=== PATIENT | female | born 1995 | race Caucasian/White ===

== ENCOUNTER 2022-12-20 14:18 | Emergency (ER) | payer OTHER ==
[2022-12-20 14:33] VITALS: O2SAT 100
[2022-12-20] MEDS ORDERED: HYDROmorphone 1 MG/ML CARPUJECT IM STA (14:35)
--- NOTE | 2022-12-20 14:39 | ED Physician Documentation ---
History of Present Illness - Stated complaint Stated Complaint: BACK PX - Chief complaint Chief Complaint: Trauma Ch/Bk - Additonal information Additional information: 26-year-old female presents emergency department for evaluation of acute on chronic low back pain. Reports originally injuring her back in 2020. She has been seen by physical therapy multiple times. She is also been seen by primary care doctor. They have all recommended an MRI of the back but [facility] has not followed through with these recommendations. Patient states that she was bending over to lift a box when she felt a sharp pain in her low back that radiates to her right quadriceps and gluteus. She states that this feels similar to sciatica that she has been told she has in the past. She has no saddle anesthesia, loss of bowel or bladder function. No history of diabetes, cancer or injection drug use. No fevers. At home the patient took 800 of Motrin and 10 of Flexeril as well as applied diclofenac gel to the back with no relief of symptoms. In the exam room she is crying and tearful. Review of Systems Constitutional: denies: Fever Nose: reports: Reviewed and negative Cardiac: reports: Reviewed and negative Respiratory: reports: Reviewed and negative GI: reports: Reviewed and negative Skin: reports: Reviewed and negative Musculoskeletal: reports: Back pain Neurologic: denies: Numbness PD PAST MEDICAL HISTORY - Present Medications Home Medications: Ambulatory Orders Medication Instructions Recorded Confirmed Sertraline HCl [Zoloft] 200 mg PO DAILY 12/20/22 12/20/22 oxyCODONE [Roxicodone] 5 mg PO TID PRN #20 tablet 12/20/22 - Allergies Allergies/Adverse Reactions: Allergies Allergy/AdvReac Type Severity Reaction Status Date / Time No Known Drug Allergies Allergy Verified 12/20/22 14:22 PD ED PE NORMAL - General General: Alert and oriented X 3. No: No acute distress (cying, tearful) - Cardiac Cardiac: RRR, No murmur - Respiratory Respiratory: No respiratory distress, Clear bilaterally - Back Back: No CVA TTP, No spinal TTP (mild lower midline lumbar tenderness with radiation to the right leg. motor strength 5/5 BLE) Results - Vitals Vitals: Vital Signs - 24 hr 12/20/22 14:23 Temperature 37.4 C Heart Rate 86 Respiratory 18 Rate Blood Pressure 127/101 H O2 Saturation 100 Oxygen O2 Source Room air PD Medical Decision Making - ED course Complexity details: reviewed results, re-evaluated patient, d/w patient ED course: 26-year-old female presents emergency department for evaluation of acute low back pain sustained when she was lifting a box. She felt a pop in her low back. She does have a pre-existing history of back pain with associated sciatica. No history of previous imaging. On exam there was no saddle anesthesia, loss of bowel or bladder function. She was quite painful. She was initially administered 1 mg of Dilaudid IM and on reevaluation pain had improved to the point that she was able to stand up and was ambulating with a walker. Patient is pending moving to [place] at the end of next week. Because she is already taking Flexeril and an NSAID she will be trialed with a short course of oxycodone. We discussed that in the future if back pain continues to be a problem she would benefit from imaging. The usual emergent return precautions worsening symptoms was discussed. I am prescribing a short course of short-acting opioid pain medication for this patient. I have reviewed the patients [employer] and no concerning findings were noted. I have discussed that the opioids are for short term therapy only, and will not be refilled from the ED. Departure - Departure Disposition: 01 Home, Self Care Clinical Impression: Acute low back pain Qualifiers: Back pain laterality: midline Sciatica presence: with sciatica Sciatica laterality: sciatica of right side Qualified Code(s): M54.41 - Lumbago with sciatica, right side Condition: Stable Record reviewed to determine appropriate education?: Yes Prescriptions: oxyCODONE [Roxicodone] 5 mg PO TID PRN #20 tablet PRN Reason: Pain Comments: Diane I hope that your back pain is improving soon. I would like you to continue to take the ibuprofen with food 3 times a day. Alternate with 500 mg of Tylenol as well. For more severe pain a limited prescription of oxycodone has been sent to the [facility] in [place]. It is important that you continue to be active and move is much as possible to help prevent the back from tightening up too much which can worsen pain. You can continue to take the Flexeril. If taking Flexeril and oxycodone it is not safe for you to operate or drive a vehicle. If at any point you find that you have numbness in your genital area, loss of control of bowel or bladder function please return to the ER for repeat evaluation. I am prescribing a short course of narcotic pain medication for you. These are potentially dangerous and addictive medications that should be used carefully. These medications may constipate you. Take an tecb-bad-lsolphr stool softener (docusate) twice daily with plenty of water while taking these medications. If you go 24 hours without a bowel movement, take [id number] miralax, per package instructions. Do not drink or drive while taking these medications. If you received narcotic or sedating medications while in the emergency department, do not drive for 24 hours. Store this medication in a safe, secure place and out of reach of children. It is a violation of federal law to give or sell this medication to another person or to use in a manner other than prescribed. The ED will not refill narcotic prescriptions, including prescriptions lost or stolen. To dispose of unwanted medications: 1. [facility] at [address] in [place] has a medication drop box. They accept prescription medications (in pill form) Monday through Monday 9:00 a.m. to 5:00 p.m. 2. The [facility] [employer] [facility] accepts prescription medications (in pill form only) for disposal year round. Call for more information. 3. Contact the [facility] for the next [facility] sponsored prescription drug collection event. , x6813, or x8398; Note that many narcotic pain relievers also contain Tylenol/acetaminophen. Please ensure that your total dose of acetaminophen from all sources does not exceed 3 g (3000 mg) per day. Forms: PCP List
[2022-12-20] MEDS ORDERED: oxyCODONE 5 MG TABLET PO STA (15:03)
[2022-12-20 16:25] VITALS: BP 141/94
== END 2022-12-20 16:17 | disposition home or self-care (01) ==
LOC: ED 14:18
DX: M54.51 Vertebrogenic low back pain (principal)
CPT/HCPCS: 96372; 99283; A9270; J1170